=== PATIENT | male | born 2000 | race American Indian/Alaskan Native ===

== ENCOUNTER 2024-04-08 08:38 | Emergency (ER) | payer SELFPAY ==
[~2024-04-08] VITALS: Ht 167.6 cm; Wt 124.6 kg
--- OUTSIDE RECORDS SUMMARY | 2024-04-08 08:40 | XMS ---
PreManage Notification: TOBY DCIKSON Security Surgical Clinical Reviewer Events No recent Security Events currently on file CRITERIA MET - [facility] - 2 Visits in 30 Days CARE PROVIDERS There are no care providers on record at this time. Care Guidelines exist for the following facilities: [facility] ( 03/21/2021 ) [place] VISIT COUNT (12 MO.) 2 [place] [id number] [facility] TOTAL 3 NOTE: Visits indicate total known visits. ED/UCC VISIT TRACKING (12 MO.) 04/08/2024 08:39 [facility] TYPE: Emergency COMPLAINT: - ABDOMINAL PAIN 03/12/2024 18:28 [facility] TYPE: Emergency COMPLAINT: - TESTS 04/11/2023 10:36 [facility] TYPE: Emergency DIAGNOSES: - Activity, basketball - Acute pain due to trauma - Sprain of unspecified ligament of left ankle, initial encounter - Ankle Injury - L ankle injury INPATIENT VISIT TRACKING (12 MO.) No inpatient visits to display in this time frame [email or web address]
[2024-04-08] MEDS ORDERED: HYDROmorphone HCL 1 MG/ML SYR IV ONE (09:00)
[2024-04-08] MEDS ORDERED: ondansetron HCL 4 MG/2 ML VIAL IV ONE (09:00)
[2024-04-08] MEDS ORDERED: SODIUM CHLORIDE 0.9% 1,000 ML IV ONE (09:00)
[2024-04-08 09:01] LABS: BASOPHILS 0.9 % (0-2); EOSINOPHILS 2.6 % (0-6); HEMATOCRIT 42.7 % (35.0-50.0); HEMOGLOBIN 14.4 g/dL (12.0-18.0); LYMPHOCYTES 31.9 % (24-44); MCHC 33.8 g/dl (30-36); MCV 82.9 fl (81-99); MONOCYTES 5.8 % (0-12); NEUTROPHILS 58.8 % (39-80); PLATELET COUNT 349 K/uL (140-440); RBC 5.15 M/ul (4.3-5.7); RDW 13.6 (10.5-15.0)
[2024-04-08 09:10] LABS: ALBUMIN/GLOBULIN RATIO 1.14 (1.1-2.4); ANION GAP 10.8 (7-21); BILIRUBIN, TOTAL 0.6 ng/dL (0.2-1.0); BUN/CREATININE RATIO 10.52 (6.0-28.6); CALCIUM 8.6 mg/dL (8.5-10.1); CREATININE, SERUM 1.14 mg/dL (0.70-1.30); POTASSIUM 3.8 mmol/L (3.5-5.1); PROTEIN, TOTAL 7.5 g/dL (6.4-8.2)
[2024-04-08] MEDS ORDERED: LIDOCAINE & ANTACID 35 ML BTL ONE (09:25)
[2024-04-08] MEDS ORDERED: LIDOCAINE & ANTACID 35 ML BTL PO ONE (09:30)
[2024-04-08] MEDS ORDERED: KETOROLAC TROMETHAMINE 30 MG/ML VIAL IV ONE (10:00)
[2024-04-08 10:27] LABS: BILIRUBIN, URINE POSITIVE (negative); BLOOD/HGB, URINE LARGE (Negative); KETONE, URINE NEGATIVE (Negative); LEUK ESTERASE, URINE NEGATIVE (negative); NITRITE, URINE NEGATIVE (negative)
[2024-04-08 10:37] LABS: BACTERIA, URINE RARE /hpf (negative); CASTS, URINE NONE SEEN \\lpf; CRYSTALS, URINE NONE SEEN (0-1+); EPITHELIAL CELLS, URINE SQUAMOUS 1+ /lpf (0-1+); RED BLOOD CELLS, URINE >50 /hpf (0-5)
[2024-04-08 10:38] LABS: COLLECTION TYPE, URINE VOID; REFLEX CULTURE, URINE No (No)
[2024-04-08] MEDS ORDERED: KETOROLAC TROME10 MG PO (11:06)
[2024-04-08] MEDS ORDERED: PYRIDIUM200 MG PO (11:06)
[2024-04-08] MEDS ORDERED: ONDANSETRON ODT8 MG SL (11:06)
[2024-04-08 11:50] VITALS: BP 102/75
== END 2024-04-08 11:55 | disposition home or self-care (01) ==
LOC: ED 08:38
PROVIDERS: Emergency Medicine
DX: N20.1 Calculus of ureter (principal); Z88.0 Allergy status to penicillin
CPT/HCPCS: 36415; 74176; 80053; 81001; 83690; 85025; 96374; 96375; 99284-25; J1170; J1885; J2405; J7030

== ENCOUNTER 2024-04-20 22:11 | Emergency (ER) | payer SELFPAY ==
[~2024-04-20] VITALS: Ht 167.6 cm; Wt 125.0 kg
[~2024-04-20 22:11] MED LIST: KETOROLAC TROME10 MG PO; ONDANSETRON ODT8 MG SL; PYRIDIUM200 MG PO
--- OUTSIDE RECORDS SUMMARY | 2024-04-20 22:18 | XMS ---
PreManage Notification: TOBY DICKSON Security Restaurant Associate Events No recent Security Events currently on file CRITERIA MET - [facility] - 2 Visits in 30 Days CARE PROVIDERS There are no care providers on record at this time. Care Guidelines exist for the following facilities: [facility] ( 03/21/2021 ) [place] VISIT COUNT (12 MO.) 4 [facility] TOTAL 4 NOTE: Visits indicate total known visits. ED/UCC VISIT TRACKING (12 MO.) 04/20/2024 22:12 [facility] [place] TYPE: Emergency COMPLAINT: - DIZZIENESS/THUMB PAIN 04/12/2024 02:42 [facility] [place] TYPE: Emergency COMPLAINT: - HIT HEAD DIAGNOSES: - Allergy status to penicillin - Concussion without loss of consciousness, initial encounter - Headache, unspecified - Other usp (current) drug therapy - Other visual disturbances - Striking against or struck by other objects, initial encounter 04/08/2024 08:39 [facility] [place] TYPE: Emergency COMPLAINT: - ABDOMINAL PAIN DIAGNOSES: - Allergy status to penicillin - Calculus of ureter - Left lower quadrant pain 03/12/2024 18:28 [facility] [place] TYPE: Emergency COMPLAINT: - TESTS INPATIENT VISIT TRACKING (12 MO.) No inpatient visits to display in this time frame [email or web address]
[2024-04-21 00:48] VITALS: BP 109/73
== END 2024-04-21 00:48 | disposition home or self-care (01) ==
LOC: ED 22:11
DX: Z02.79 Encounter for issue of other medical certificate (principal); F07.81 Postconcussional syndrome; Z88.0 Allergy status to penicillin
CPT/HCPCS: 99283

== ENCOUNTER 2025-06-18 04:53 | Emergency (ER) | payer SELFPAY ==
[~2025-06-18] VITALS: Ht 167.6 cm; Wt 135.0 kg
[2025-06-18] MEDS ORDERED: LORazepam 1 MG TAB PO ONE (05:30)
[2025-06-18 05:32] LABS: BASOPHILS 0.7 % (0.2-1.2); EOSINOPHILS 1.5 % (0.8-7.0); LYMPHOCYTES 26.1 % (21.8-53.1); MCH 27.8 PG (25.7-32.2); MCHC 32.6 g/dL (32.3-36.5); MCV 85.3 fL (79.0-92.2); MONOCYTES 4.5 % (5.3-12.2); NEUTROPHILS 66.9 % (34.0-67.9); RBC 5.10 M/uL (4.63-6.08)
[2025-06-18 05:36] LABS: BLOOD/HGB, URINE TRACE-I (Negative); KETONE, URINE NEGATIVE (Negative); LEUK ESTERASE, URINE NEGATIVE (negative); NITRITE, URINE NEGATIVE (negative)
[2025-06-18 05:48] LABS: AMPHETAMINES, URINE NEGATIVE (NEGATIVE); BARBITURATES, URINE NEGATIVE (NEGATIVE); BENZODIAZEPINE, URINE NEGATIVE (NEGATIVE); CANNABINOID, URINE NEGATIVE (NEGATIVE); COCAINE, URINE NEGATIVE (NEGATIVE); ECSTASY, URINE NEGATIVE (NEGATIVE); FENTANYL, URINE NEGATIVE (NEGATIVE); METHADONE, URINE NEGATIVE (NEGATIVE); OPIATES, URINE NEGATIVE (NEGATIVE); OXYCODONE, URINE NEGATIVE (NEGATIVE); PHENCYCLIDINE, URINE NEGATIVE (NEGATIVE)
[2025-06-18 05:57] LABS: BACTERIA, URINE 1+ /hpf (negative); CASTS, URINE NONE SEEN \\lpf; CRYSTALS, URINE NONE SEEN (0-1+); EPITHELIAL CELLS, URINE SQUAMOUS 1+ /lpf (0-1+); REFLEX CULTURE, URINE No (No)
[2025-06-18 06:11] LABS: ALCOHOL, MEDICAL 146 mg/dL (<3); ALT (SGPT) 61 U/L (14-59); AST (SGOT) 29 U/L (15-37); GLOMERULAR FILTRATION RATE,EST 117 mL/min (>60); PROTEIN, TOTAL 7.6 g/dL (6.4-8.2); TSH, 3RD GENERATION 3.075 uIU/mL (0.358-3.740); UREA NITROGEN 8 mg/dL (7-18)
[2025-06-18] MEDS ORDERED: NITROFURANTOIN MONOHYD MACROCR 100 MG HOME.PACK PO ONE (06:15)
[2025-06-18] MEDS ORDERED: MACROBID 100 M100 MG PO (06:19)
[2025-06-19 13:04] VITALS: BP 121/80
== END 2025-06-19 13:05 | disposition other institution, planned readmission (95) ==
LOC: ED 04:53
PROVIDERS: Family Medicine
DX: R45.851 Suicidal ideations (principal); N39.0 Urinary tract infection, site not specified; Z88.0 Allergy status to penicillin
CPT/HCPCS: 36415; 80053; 80307; 81001; 84443; 85025; 99285; A9270-GY; G0480